=== PATIENT | male | born 1940 | race Caucasian/White ===

== ENCOUNTER 2016-10-22 18:39 | Emergency (ER) | payer MEDICARE, BC ==
[2016-10-22 19:18] VITALS: BP 161/76
[2016-10-22] MEDS ORDERED: Doxycycline 100 MG Cap PO ONE (19:24)
--- NOTE | 2016-10-22 19:28 | EDM.PDOC ---
ED HPI GENERAL MEDICAL PROBLEM - General Chief Complaint: Skin Complaint Stated Complaint: WOODTICK Time Seen by Provider: 10/22/16 19:20 Source of Information: Reports: Patient History Limitations: Reports: No Limitations - History of Present Illness INITIAL COMMENTS - FREE TEXT/NARRATIVE: Williams is a 76 year old male who presents to the ED today after his pulled a very tiny tick off of his back. No engorgement. Patient denies any complaints. Onset: Today - Related Data Allergies Allergy/AdvReac Type Severity Reaction Status Date / Time No Known Allergies Allergy Verified 10/22/16 19:19 Home Meds: Home Meds *Cardio Centrum 1 cap PO DAILY 08/28/13 [History] Esomeprazole [NexIUM] 40 mg PO DAILY 08/28/13 [History] Metoprolol Tartrate [Lopressor] 100 mg PO BID 08/28/13 [History] Simvastatin [Simvastatin] 40 mg PO DAILY 08/28/13 [History] Clopidogrel [Plavix] 1 tab PO DAILY 05/16/15 [History] Past Medical History HEENT History: Reports: Sinusitis Cardiovascular History: Reports: CAD Neurological History: Reports: CVA - Past Surgical History Cardiovascular Surgical History: Reports: Coronary Artery Bypass, Coronary Artery Stent GI Surgical History: Reports: Hernia, Inguinal Social & Family History - Family History Family Medical History: Unobtainable - Tobacco Use Smoking Status *Q: Never Smoker Second Hand Smoke Exposure: No - Caffeine Use Caffeine Use: Reports: Coffee - Alcohol Use Days Per Week of Alcohol Use: 3 Number of Drinks Per Day: 2 Total Drinks Per Week: 6 - Recreational Drug Use Recreational Drug Use: No ED ROS GENERAL - Review of Systems Review Of Systems: ROS reveals no pertinent complaints other than HPI. ED EXAM, SKIN/RASH Exam: See Below Exam Limited By: No Limitations General Appearance: Alert, WD/WN, No Apparent Distress Head: Atraumatic. No: Sinus Tenderness Neck: Normal Inspection Respiratory/Chest: No Respiratory Distress Cardiovascular: Bradycardia Back Exam: Normal Inspection Extremities: Normal Inspection Neurological: Alert, Oriented Psychiatric: Normal Affect, Normal Mood Skin: No Rash Course - Vital Signs Last Recorded V/S: Last Vital Signs Temp 36.8 C 10/22/16 19:15 Pulse 58 L 10/22/16 19:15 Resp 16 10/22/16 19:15 BP 161/76 H 10/22/16 19:15 Pulse Ox 98 07/23/17 19:15 Williams is a 76 year old male who presents to the ED after pulled a very small tick off of his back. Patient denies any symptoms, possible deer tick. Patient given prophylactic doxycycline, given instructions for symptoms to watch for that would be concerning for tick borne fever and discharged in stable condition. - Orders/Labs/Meds Orders: Active Orders 24 hr Category Date Time Status Doxycycline [Vibramycin] Med 10/22/16 19:24 Once 200 mg PO ONETIME ONE Departure - Departure Time of Disposition: 19:45 Disposition: Home, Self-Care 01 Condition: Good Clinical Impression: Tick bite of back Qualifiers: Encounter type: initial encounter Qualified Code(s): S30.860A - Insect bite ( nonvenomous) of lower back and pelvis, initial encounter; W57.XXXA - Bitten or stung by nonvenomous insect and other nonvenomous arthropods, initial encounter - Discharge Information Forms: ED Department Discharge Additional Instructions: Follow up with primary care if you develop any symptoms that would be concerning for tick borne fever such as fever, headache, body aches, joint pain and/or rash. - My Orders Last 24 Hours: My Active Orders 10/22/16 19:24 Doxycycline [Vibramycin] 200 mg PO ONETIME ONE - Assessment/Plan Last 24 Hours: My Active Orders 10/22/16 19:24 Doxycycline [Vibramycin] 200 mg PO ONETIME ONE
== END 2016-10-22 19:34 | disposition home or self-care (01) ==
LOC: JP.ED 18:39
DX: S30.860A Insect bite (nonvenomous) of lower back and pelvis, initial encounter (principal); I25.10 Atherosclerotic heart disease of native coronary artery without angina pectoris; Z95.1 Presence of aortocoronary bypass graft; Z86.73 Personal history of transient ischemic attack (TIA), and cerebral infarction without residual deficits; Z95.5 Presence of coronary angioplasty implant and graft; Z79.899 Other long term (current) drug therapy; W57.XXXA Bitten or stung by nonvenomous insect and other nonvenomous arthropods, initial encounter
CPT/HCPCS: 99283; A9270; 99282

== ENCOUNTER 2022-02-23 16:54 | Emergency (ER) | payer BC, MEDICARE ==
[2022-02-23] MEDS ORDERED: Aspirin 81 MG Tab.Chew PO ONE (21:06)
[2022-02-23] MEDS ORDERED: Nitroglycerin 0.4 MG Tab.SL SL ONE (21:06)
[2022-02-24 00:55] VITALS: BP 189/79; PULSE 48
[2022-02-24] MEDS ORDERED: Lisinopril 5 MG Tab PO ONE (00:59)
== END 2022-02-24 01:28 | disposition home or self-care (01) ==
LOC: JP.ED 16:54
DX: I25.10 Atherosclerotic heart disease of native coronary artery without angina pectoris (principal); E78.5 Hyperlipidemia, unspecified; I10 Essential (primary) hypertension; Z79.899 Other long term (current) drug therapy; Z79.82 Long term (current) use of aspirin
CPT/HCPCS: 36415; 80048; 83735; 84484; 85025; 93005; 99285; A9270

== ENCOUNTER 2022-05-29 14:15 | Emergency (ER) | payer MEDICARE ==
[2022-05-29] MEDS ORDERED: Sodium Chloride 0.9% 10 ML Syringe FLUSH PRN (14:20)
[2022-05-29 15:01] LABS: TROPONIN I HIGH SENSITIVITY 15.4 pg/mL (<=60.3)
[2022-05-29] MEDS ORDERED: Sodium Chloride 0.9% 10 ML Syringe FLUSH ONE (16:14)
[2022-05-29] MEDS ORDERED: Iopamidol 755 Mg/ML 100 ML Bottle IV SCH (16:15)
[2022-05-29] MEDS ORDERED: Sodium Chloride 0.9% 75 ML IV SCH (16:15)
[2022-05-29 16:16] VITALS: PULSE 49
[2022-05-29 17:44] VITALS: BP 153/68
== END 2022-05-29 18:28 | disposition home or self-care (01) ==
LOC: JP.ED 14:15
DX: G45.9 Transient cerebral ischemic attack, unspecified (principal); I10 Essential (primary) hypertension; E78.5 Hyperlipidemia, unspecified; I25.10 Atherosclerotic heart disease of native coronary artery without angina pectoris; R35.0 Frequency of micturition; Z95.5 Presence of coronary angioplasty implant and graft; Z95.1 Presence of aortocoronary bypass graft; Z79.82 Long term (current) use of aspirin; Z79.899 Other long term (current) drug therapy
CPT/HCPCS: 36415; 70450; 70496; 70498; 80048; 81001; 82947; 84484; 85025; 85610; 85730; 93005; 99285; J3490; Q9967

== ENCOUNTER 2022-07-26 11:27 | Emergency (ER) | payer MEDICARE ==
[2022-07-26] MEDS ORDERED: Labetalol 20 MG/4 ML Syringe IVPUSH ONE (11:49)
[2022-07-26 12:00] LABS: ESTIMATED GFR 62 mL/min (>60)
[2022-07-26 12:28] VITALS: BP 200/97; PULSE 79
[2022-07-26] MEDS ORDERED: niCARdipine HCl 25 MG in Sodium Chloride 0.9% 240 ML IV SCH (13:00)
== END 2022-07-26 12:43 | disposition other institution (70) ==
LOC: JP.ED 11:27
DX: I62.9 Nontraumatic intracranial hemorrhage, unspecified (principal); I25.10 Atherosclerotic heart disease of native coronary artery without angina pectoris; Z86.73 Personal history of transient ischemic attack (TIA), and cerebral infarction without residual deficits; Z79.82 Long term (current) use of aspirin
CPT/HCPCS: 36415; 70450; 70450-26; 80053; 85025; 85610; 93005; 93010; 96365; 96375; 99285; 99285-25; J3490; J7050

== ENCOUNTER 2022-09-03 17:30 | Emergency (ER) | payer MEDICARE ==
[2022-09-03 17:55] LABS: HEMATOCRIT 36.8 % (38.4-49.7); HEMOGLOBIN 12.8 g/dL (12.9-16.9); MEAN CORPUSCULAR HEMOGLOBIN 29.9 pg (31.6-35.5); MEAN CORPUSCULAR HGB CONC 34.8 g/dL (31.6-35.5); RED BLOOD CELL COUNT 4.28 M/uL (4.14-5.76); WHITE BLOOD CELL COUNT,WBC 7.2 K/uL (3.2-11.0)
[2022-09-03] MEDS ORDERED: Sodium Chloride 0.9% 1,000 ML IV SCH (18:00)
[2022-09-03 18:12] LABS: INR 1.1; PROTHROMBIN TIME 10.7 sec (9.2-10.6)
[2022-09-03 18:20] LABS: ALANINE AMINOTRANSFERASE,ALT 21 U/L (12-78); ALBUMIN 3.4 g/dL (3.4-5.0); ALKALINE PHOSPHATASE 57 U/L (46-116); ASPARTATE AMNIOTRANSFERASE,AST 19 U/L (15-37); BILIRUBIN TOTAL 0.5 mg/dL (0.2-1.0); BLOOD UREA NITROGEN,BUN 24 mg/dL (7-18); CALCIUM 8.9 mg/dL (8.5-10.1); CARBON DIOXIDE,CO2 29 mmol/L (21-32); CHLORIDE,CL 104 mmol/L (100-108); CREATININE 1.3 mg/dL (0.8-1.3); EST CRCL DRUG DOSING (CG) 47.57 mL/min; ESTIMATED GFR 56 mL/min (>60); GLUCOSE RANDOM 112 mg/dL (74-106); PROTEIN TOTAL,TP 6.7 g/dL (6.4-8.2); SODIUM,NA 139 mmol/L (140-148)
[2022-09-03 19:07] LABS: APPEARANCE,URINE CLEAR (CLEAR); BILIRUBIN,URINE NEGATIVE (NEGATIVE); COLOR,URINE YELLOW (YELLOW); GLUCOSE,URINE NEGATIVE (NEGATIVE); KETONES,URINE NEGATIVE (NEGATIVE); LEUKOCYTE ESTERASE,URINE NEGATIVE (NEGATIVE); NITRITE,URINE NEGATIVE (NEGATIVE); OCCULT BLOOD,URINE NEGATIVE (NEGATIVE); PROTEIN,URINE NEGATIVE (NEGATIVE); UROBILINOGEN,URINE 0.2 EU/dL (0.2-1.0)
[2022-09-03 19:13] LABS: AMORPHOUS SEDIMENT,URINE NOT SEEN; BACTERIA,URINE FEW; EPITHELIAL CELLS,URINE RARE; MUCUS,URINE RARE; RBC,URINE 0-5 (0-5); WBC,URINE 0-5 (0-5)
[2022-09-03 20:41] VITALS: BP 165/82; PULSE 55
== END 2022-09-03 20:46 | disposition home or self-care (01) ==
LOC: JP.ED 17:30
DX: E86.0 Dehydration (principal); I10 Essential (primary) hypertension; E78.5 Hyperlipidemia, unspecified; I25.10 Atherosclerotic heart disease of native coronary artery without angina pectoris; Z86.73 Personal history of transient ischemic attack (TIA), and cerebral infarction without residual deficits; Z79.899 Other long term (current) drug therapy; Z95.1 Presence of aortocoronary bypass graft
CPT/HCPCS: 36415; 80053; 81001; 84484; 85027; 85610; 93005; 96360; 96361; 99284; J7030

== ENCOUNTER 2023-11-01 16:23 | Emergency (ER) | payer MEDICARE ==
[2023-11-01] MEDS ORDERED: Sodium Chloride 0.9% 10 ML Syringe FLUSH PRN (16:36)
[2023-11-01 16:51] LABS: BASOPHILS ABSOLUTE AUTO 0.08 K/uL (0.00-0.10); EOSINOPHILS ABSOLUTE AUTO 0.29 K/uL (0.00-0.40); EOSINOPHILS PERCENT AUTO 3.8 % (0.0-5.4); HEMATOCRIT 34.6 % (38.4-49.7); HEMOGLOBIN 12.1 g/dL (12.9-16.9); IMMATURE GRAN ABSOLUTE AUTO 0.01 K/uL (0.00-0.23); IMMATURE GRAN PERCENT AUTO 0.1 % (0.0-0.7); LYMPHOCYTES ABSOLUTE AUTO 1.59 K/uL (0.8-3.3); LYMPHOCYTES PERCENT AUTO 20.8 % (11.4-47.7); MEAN CORPUSCULAR HEMOGLOBIN 30.2 pg (31.6-35.5); MEAN CORPUSCULAR VOLUME 86.3 fL (81.4-99.0); MONOCYTES ABSOLUTE AUTO 0.68 K/uL (0.20-0.90); MONOCYTES PERCENT AUTO 8.9 % (3.3-12.6); NEUTROPHILS ABSOLUTE AUTO 5.01 K/uL (1.0-7.6); NEUTROPHILS PERCENT AUTO 65.4 % (40.0-78.1); PLATELET COUNT,PLT 164 K/uL (130-375); RED BLOOD CELL COUNT 4.01 M/uL (4.14-5.76); WHITE BLOOD CELL COUNT,WBC 7.7 K/uL (3.2-11.0)
[2023-11-01] MEDS: Sodium Chloride 0.9% 1,000 ML IV ONE (16:53)
[2023-11-01 17:11] LABS: INR 1.1; PROTHROMBIN TIME 11.3 sec (9.2-10.6); PTT,PARTIAL THROMBOPLSTIN TIME 25.5 sec (21.8-27.3)
[2023-11-01 17:14] LABS: BLOOD UREA NITROGEN,BUN 23 mg/dL (7-18); CALCIUM 8.7 mg/dL (8.5-10.1); CARBON DIOXIDE,CO2 25 mmol/L (21-32); CHLORIDE,CL 105 mmol/L (100-108); CREATININE 1.2 mg/dL (0.8-1.3); ESTIMATED GFR 61 mL/min (>60); GLUCOSE RANDOM 111 mg/dL (74-106); POTASSIUM,K 4.3 mmol/L (3.6-5.2); SODIUM,NA 139 mmol/L (140-148); TROPONIN I HIGH SENSITIVITY 18.4 pg/mL (<=60.3)
[2023-11-01 17:17] LABS: ANION GAP 13.3 mmol/L (5.0-14.0)
[2023-11-01 18:37] VITALS: BP 165/69; PULSE 47
== END 2023-11-01 18:44 | disposition home or self-care (01) ==
LOC: JP.ED 16:23
DX: E86.0 Dehydration (principal); I10 Essential (primary) hypertension; Z95.1 Presence of aortocoronary bypass graft; Z95.5 Presence of coronary angioplasty implant and graft; Z79.82 Long term (current) use of aspirin; Z79.899 Other long term (current) drug therapy; Z86.73 Personal history of transient ischemic attack (TIA), and cerebral infarction without residual deficits
CPT/HCPCS: 36415; 70450; 80048; 82947; 84484; 85025; 85610; 85730; 93005; 93010; 96360; 99283; 99285; J7030